=== PATIENT | male | born 1975 | race Two or more races ===

== ENCOUNTER 2020-06-15 22:09 | Emergency (ER) | payer SELFPAY ==
[~2020-06-15] VITALS: Ht 165.1 cm; Wt 79.8 kg
[2020-06-15] MEDS ORDERED: cloNIDine HCL 0.1 MG TAB PO ONE (22:30)
[2020-06-15 23:31] LABS: Basophils # (auto) 0 10 ^3/uL (0-0.2); Basophils % (auto) 0.3 % (0.0-2.0); Eosinophils # (auto) 0.1 10 ^3/uL (0-0.8); Eosinophils % (auto) 1.2 % (0.0-7.0); Hematocrit 48.3 % (41.0-53.0); Hemoglobin 16.2 g/dL (13.5-17.5); Lymphocytes # (auto) 3.1 10 ^3/uL (0.4-5.4); Lymphocytes % (auto) 32.8 % (10.0-50.0); Mean Corpuscular Hemoglobin 29.8 pg (28.0-32.0); Mean Corpuscular Hgb Conc. 33.6 g/dL (32.0-36.0); Mean Corpuscular Volume 88.7 fL (80.0-100.0); Monocytes # (auto) 0.6 10 ^3/uL (0-1.3); Monocytes % (auto) 6.2 % (0.0-12.0); Neutrophils # (auto) 5.7 10 ^3/uL (1.6-8.6); Neutrophils % (auto) 59.5 % (37.0-80.0); Nucleated Red Blood Cells % 0.1 %; Platelet Count (auto) 223 10^3/uL (140-450); Red Blood Cells 5.45 10^6/uL (4.5-5.90); Red Cell Distribution Width 14.1 % (11.8-14.3); White Blood Cell 9.5 10^3/uL (4.4-10.8)
[2020-06-15 23:36] LABS: INR 0.99 (0.9-1.15); Partial Thromboplastin Time 26.5 sec (23.64-32.05)
[2020-06-15 23:44] LABS: Chloride 105 mmol/L (98-107); Potassium 3.8 mmol/L (3.5-5.1); Sodium 139 mmol/L (136-145)
[2020-06-15 23:49] LABS: Albumin 4.2 g/dL (3.4-5.0); Anion Gap 7 (5-15); BUN/Creatinine Ratio 20.9; Blood Urea Nitrogen 18 mg/dL (7-18); Carbon Dioxide 27 mmol/L (21-32); GFR African American 124 mL/min; GFR Non-African American 103 mL/min; Glucose 92 mg/dL (74-106); Magnesium 2.3 mg/dL (1.6-2.6)
[2020-06-15 23:55] LABS: Alanine Aminotransferase 28 U/L (16-61); Alkaline Phosphatase 92 U/L (45-117); Aspartate Aminotransferase 20 U/L (15-37); Bilirubin, Total 0.6 mg/dL (0.2-1.0); Total Protein 7.8 g/dL (6.4-8.2)
[2020-06-16 01:01] VITALS: BP 124/82
== END 2020-06-16 04:21 | disposition home or self-care (01) ==
LOC: ER 22:09
DX: I10 Essential (primary) hypertension (principal); R51 Headache
CPT/HCPCS: 36415; 70450; 71045; 80053; 83735; 84484; 85025; 85610; 85730; 93005